=== PATIENT | female | born 1970 | race Caucasian/White ===

== ENCOUNTER 2022-01-05 09:32 | Outpatient (REF) | payer MEDICAID, SELFPAY ==
--- NOTE | ~2022-01-05 | XR_ITS ---
EXAMINATION: XR CERVICAL SPINE CLINICAL INFORMATION: Neck pain. COMPARISON: None TECHNIQUE: 5 views of the cervical spine were obtained. FINDINGS: Bone alignment is normal. No fracture or dislocation is seen. There are postsurgical changes at C5-C6 with loss of height of the C5 vertebral body and bony ankylosis. There is degenerative spondylosis and degenerative disc disease from C3-C4 to C6-C7. There is right-sided neural foraminal narrowing at C3-C4 and C4-C5 and left-sided neural foraminal narrowing from C2-C3 to C6-C7 from bony osteophyte. Prevertebral soft tissues are normal. There are multiple coils in the right neck. XR/XR cervical spine 4V IMPRESSION: Postsurgical changes with bony fusion at C5-C6. Multilevel degenerative changes.
== END 2022-01-05 09:33 | disposition home or self-care (01) ==
LOC: HO.XRAY 09:32
PROVIDERS: PCP Internal Medicine; Visit Provider Internal Medicine
DX: M54.2 Cervicalgia (principal)
CPT/HCPCS: 72050

== ENCOUNTER 2022-01-07 09:48 | Outpatient (REF) | payer MEDICAID, SELFPAY ==
--- NOTE | ~2022-01-07 | MM_ITS ---
EXAMINATION: MM SCREENING DIGITAL BREAST TOMOSYNTHESIS, BILATERAL CLINICAL INFORMATION: Screening. Asymptomatic. Age 51. No prior breast imaging. No known family history breast cancer. The lifetime risk of breast cancer based on the Tyrer-Cuzick Model is 8%. COMPARISON: None (current study represents initial baseline exam). TECHNIQUE: Digital breast tomosynthesis is performed in both the craniocaudal and mediolateral oblique views along with computer-aided detection (CAD). Synthesized 2D images are generated from the tomosynthesis. Additional right MLO view is provided. FINDINGS: There are scattered areas of fibroglandular density (ACR BI-RADS breast composition Category b). There are scattered bilateral fibroglandular asymmetries. There is no significant mass or architectural abnormality or architectural abnormality. No abnormal calcifications. The axilla and skin contours are unremarkable. No skin thickening or retraction. MM/MM tomosynthesis screening BI IMPRESSION: No mammographic evidence of malignancy. ASSESSMENT: BI-RADS 2: Benign RECOMMENDATION: Routine annual mammography screening. This patient's information was entered into a reminder system with a target due date for their next mammogram.
== END 2022-01-07 09:49 | disposition home or self-care (01) ==
LOC: HO.MAMMO 09:48
PROVIDERS: Visit Provider Internal Medicine
DX: Z12.31 Encounter for screening mammogram for malignant neoplasm of breast (principal)
CPT/HCPCS: 77063; 77067

== ENCOUNTER 2023-01-13 09:54 | Outpatient (REF) | payer MEDICAID, SELFPAY ==
--- NOTE | ~2023-01-13 | MM_ITS ---
EXAMINATION: MM SCREENING DIGITAL BREAST TOMOSYNTHESIS, BILATERAL CLINICAL INFORMATION: Screening. Asymptomatic. The lifetime risk of breast cancer based on the Tyrer-Cuzick Model is 8%. COMPARISON: Mammography: 01/07/2022 (baseline) TECHNIQUE: Digital breast tomosynthesis is performed in both the craniocaudal and mediolateral oblique views along with computer-aided detection (CAD). Synthesized 2D images are generated from the tomosynthesis. FINDINGS: There are scattered areas of fibroglandular density (ACR BI-RADS breast composition Category b). There are no significant masses, abnormal calcifications, or other abnormalities. Parenchymal pattern is similar to prior baseline exam. Scattered minor asymmetries are stable. No developing density or architectural abnormality. The axilla are unremarkable. MM/MM tomosynthesis screening BI IMPRESSION: No mammographic evidence of malignancy. ASSESSMENT: BI-RADS 1: Negative RECOMMENDATION: Routine annual mammography screening. This patient's information was entered into a reminder system with a target due date for their next mammogram.
== END 2023-01-13 09:55 | disposition home or self-care (01) ==
LOC: HO.MAMMO 09:54
PROVIDERS: PCP Internal Medicine; Visit Provider Internal Medicine
DX: Z12.31 Encounter for screening mammogram for malignant neoplasm of breast (principal)
CPT/HCPCS: 77063; 77067

== ENCOUNTER 2023-06-13 09:59 | Outpatient (REF) | payer MEDICAID, SELFPAY ==
[2023-06-13 14:37] LABS: MANUAL DIFF FLAG NO
[2023-06-13 14:42] LABS: Basophils Percent Auto 0.7 % (0-2); Eosinophils Absolute Auto 0.2 X10*3/uL (0.0-0.4); Eosinophils Percent Auto 2.8 % (0-4); Hematocrit 43.9 % (37.0-47.0); Hemoglobin 14.2 g/dl (12.0-16.0); Imm Gran Abs Auto 0.01 X10*3/uL (0.00-0.03); Imm Gran Pct Auto 0.2 % (0.0-0.4); Lymphocytes Absolute Auto 1.2 X10*3/uL (1.2-4.9); Mean Corpuscular HGB Conc 32.3 g/dl (31.0-35.0); Mean Corpuscular Hemoglobin 28.7 pg (27.0-33.0); Mean Corpuscular Volume 88.9 fL (80.0-98.0); Mean Platelet Volume 12.6 fL (9.4-12.3); Monocytes Absolute Auto 0.4 X10*3/uL (0.1-1.2); Monocytes Percent Auto 6.5 % (2-11); Neutrophils Absolute Auto 3.6 x10*3/uL (2.0-8.3); Neutrophils Percent Auto 66.8 % (45-73); Platelet Count 182 X10*3/uL (160-400); Red Blood Count 4.94 X10*6/uL (4.20-5.50); Red Cell Distribution Width 13.2 % (11.0-16.0); White Blood Count 5.4 X10*3/uL (4.8-10.8)
[2023-06-13 15:20] LABS: Alanine Aminotransferase 18 U/L (0-31); Albumin Level 4.4 g/dL (3.5-5.0); Alkaline Phosphatase 67 U/L (39-117); Anion Gap 14 (12-20); Aspartate Amino Transferase 18 U/L (5-31); Bilirubin Total 0.5 mg/dL (0.0-1.0); Blood Urea Nitrogen 14 mg/dL (9-16); Carbon Dioxide 27 mmol/L (22-29); Chloride 107 mmol/L (96-108); Cholesterol 197 mg/dL (<200); Estimated Glomerular Filt Rate > 60; Glucose Fasting 75 mg/dL (60-99); HDL Cholesterol 43 mg/dL (>40); LDL Cholesterol Calculated 134 mg/dL (<100); Potassium 3.8 mmol/L (3.3-5.1); Sodium 144 mmol/L (135-145); Total Protein 7.2 g/dL (6.5-8.0); Triglycerides 101 mg/dL (<150)
[2023-06-13 15:34] LABS: TSH reflex Free T4 2.63 uIU/mL (0.32-4.0)
[2023-06-14 15:59] LABS: HCV Log PCR <1.18 NOT DETECTED Log IU/mL (NOT DETECTED); HepC Viral Load <15 NOT DETECTED IU/mL (NOT DETECTED)
== END 2023-06-13 10:00 | disposition home or self-care (01) ==
LOC: HO.CHCLDS 09:59
PROVIDERS: Visit Provider Internal Medicine
DX: I10 Essential (primary) hypertension (principal)
CPT/HCPCS: 36415; 80053; 80061; 84443; 85025; 87522

== ENCOUNTER 2024-03-01 10:59 | Outpatient (REF) | payer MEDICAID, SELFPAY | END 2024-03-01 11:00 | disposition home or self-care (01) | LOC: HO.MAMMO 10:59 | PROVIDERS: PCP Internal Medicine; Visit Provider Internal Medicine | DX: Z12.31 Encounter for screening mammogram for malignant neoplasm of breast (principal) | CPT/HCPCS: 77063; 77067 ==

== ENCOUNTER → 2024-03-01 11:15 | Outpatient (BNV) | payer MEDICAID, SELFPAY | PROVIDERS: PCP Internal Medicine; Visit Provider Radiology Diagnostic Radiology | DX: Z12.31 Encounter for screening mammogram for malignant neoplasm of breast (principal) | CPT/HCPCS: 77063; 77067 ==

== ENCOUNTER 2024-04-09 10:40 | Outpatient (REF) | payer MEDICAID, SELFPAY ==
[2024-04-09 12:26] LABS: Alanine Aminotransferase 23 U/L (0-31); Albumin Level 4.3 g/dL (3.5-5.0); Alkaline Phosphatase 84 U/L (39-117); Anion Gap 13 (12-20); Aspartate Amino Transferase 22 U/L (5-31); Bilirubin Total 0.2 mg/dL (0.0-1.0); Blood Urea Nitrogen 18 mg/dL (9-16); Calcium 9.8 mg/dL (8.4-10.2); Carbon Dioxide 30 mmol/L (22-29); Chloride 105 mmol/L (96-108); Cholesterol 212 mg/dL (<200); Estimated Glomerular Filt Rate > 60; Glucose Random 104 mg/dL (60-115); HDL Cholesterol 45 mg/dL (>40); LDL Cholesterol Calculated 149 mg/dL (<100); Potassium 4.5 mmol/L (3.3-5.1); Sodium 143 mmol/L (135-145); Total Protein 7.7 g/dL (6.5-8.0); Triglycerides 90 mg/dL (<150)
== END 2024-04-09 10:41 | disposition home or self-care (01) ==
LOC: HO.CHCLDS 10:40
PROVIDERS: Visit Provider Internal Medicine
DX: I10 Essential (primary) hypertension (principal)
CPT/HCPCS: 36415; 80053; 80061

== ENCOUNTER 2025-04-15 10:48 | Outpatient (REF) | payer MEDICAID, SELFPAY ==
--- OUTSIDE RECORDS SUMMARY | 2025-04-15 12:00 | XMS_ITS | Encounter Summary ---
Author Organization [employer] Address [address] [place] [address] Care Team Providers Care Employee Development Specialist Name Role Phone Se Eden MD Primary Care Prov ider Encounter Details Date Type Department Care Team (Late st Contact Info) Description 10/12/2022 Telephone [facility] [address] [place], [place] [phone] Se Eden MD [address] [place] [address] Social History Tobacco Use Types Packs/Day Years Used Date Smoking Tobacco: Never Assessed Comments Unknown Sex and Gender Information Value Date Recorded Sex Assigned at Female 08/15/2022 10:14 AM EDT Legal Sex Female 10:14 AM EDT Gender Identity Female 08/15/2022 10:14 AM EDT Sexual Orientation Straight 08/15/2022 10 :14 AM EDT documented as of this encounter Plan of Treatment Upcoming Encounters Date Type Department Care Team (Late st Contact Info) Description 05/26/2025 11:00 AM EDT Procedure Visit [facility] [address] [place], [place] [phone] Marielos Holcomb CNM [address] [place] [address] documented as of this encounter Visit Diagnoses Not on filedocumented in this encounter Care Teams Employee Development Specialist Relationship Specialty Start Date End Date Se Eden MD [address] [place] [phone] PCP - General Internal Medicine 03/06/20 documented as of this encounter
--- OUTSIDE RECORDS SUMMARY | 2025-04-15 12:00 | XMS_ITS | Clinical Summary ---
Author Organization [facility] ity Address [id number] [place] [id number] Care Team Providers Care Capability Lead Name Role Phone Unavailable Primary Care Provider Unavailabl e Social History Tobacco Use Types Packs/Day Years Used Date Smoking Tobacco: Never Assessed Comments Unknown Sex and Gender Information Value Date Recorded Sex Assigned at Not on file Legal Sex Female 2:28 AM EST Gender Identity Not on file Sexual Orientation Not on file Plan of Treatment Health Maintenance Due Date Last Done Comments Breast Cancer Screening 1969 DTaP,Tdap,and Td Vaccines (1 - Tdap) 1988 Hepatitis B Vaccines (1 of 3 - 19+ 3-dose series) 1988 Cervical Cancer Screening: P ap Smear 1990 Pneumococcal Vaccine: 50+ Ye ars (1 of 1 - PCV) 2019 Zoster Vaccines (1 of 2) 2019 Colorectal Cancer Screening: Colonoscopy 09/18/2022 Depression Screening 09/18/2022 HIV Screening 09/18/2022 Hepatitis C Screening 09/18/2022 Social Influencers of Health Screening 09/18/2022 COVID-19 Vaccine ( - 2023-2 5 season) 2024 Influenza Vaccine (Season Ended) 2025 HIB Vaccines Aged Out No longer eligi ble based on patient's age to complete this topic HPV Vaccines Aged Out No longer eligi ble based on patient's age to complete this topic Hepatitis A Vaccines Aged Out No long er eligible based on patient's age to complete this topic IPV Vaccines Aged Out No longer eligi ble based on patient's age to complete this topic MMR Vaccines Aged Out No longer eligi ble based on patient's age to complete this topic Meningococcal ACWY Vaccine Aged Out N o longer eligible based on patient's age to complete this topic Meningococcal B Vaccine Aged Out No l onger eligible based on patient's age to complete this topic Pneumococcal Vaccine: Pediat rics (0 to 5 Years) and At-Risk Patients (6 to 64 Years) Aged Out No longer eligible b ased on patient's age to complete this topic RSV Immunization Patients Un jaylen 20 months Aged Out No longer eligible b ased on patient's age to complete this topic Varicella Vaccines Aged Out No longer eligible based on patient's age to complete this topic
== END 2025-04-15 10:49 | disposition home or self-care (01) ==
LOC: HO.MAMMO 10:48
PROVIDERS: PCP Internal Medicine; Visit Provider Internal Medicine
DX: Z12.31 Encounter for screening mammogram for malignant neoplasm of breast (principal)
CPT/HCPCS: 77063; 77067

== ENCOUNTER → 2025-04-15 11:15 | Outpatient (BNV) | payer MEDICAID, SELFPAY | PROVIDERS: PCP Internal Medicine; Visit Provider Internal Medicine | DX: Z12.31 Encounter for screening mammogram for malignant neoplasm of breast (principal) | CPT/HCPCS: 77063; 77067 ==

== ENCOUNTER 2025-08-12 09:11 | Outpatient (REF) | payer MEDICAID, SELFPAY ==
--- OUTSIDE RECORDS SUMMARY | 2025-08-12 10:20 | XMS_ITS | Encounter Summary ---
Author Organization [employer] Address [address] [place] [address] Care Team Providers Care Steel Loader Name Role Phone Se Eden MD Primary Care Prov ider Reason for Visit * Reason Onset Date Comments Referral 03/13/2024 Encounter Details Date Type Department Care Team ([facility] st Contact Info) Description 03/13/2024 Telephone [facility] [address] [place] [phone] Se Eden MD [address] [place] [address] Referral Social History Tobacco Use Types Packs/Day Years Used Date Smoking Tobacco: Former Smokeless Tobacco: Never Comments:Stopped smoking on 2017 Alcohol Use Standard Drinks/Week Comments Not Currently 0 (1 standard drink = 0.6 oz pur e alcohol) Depression Answer Date Recorded Patient Health Questionnaire-9 Score 15 12/01/2023 Patient Health Questionnaire-9 Score 15 12/01/2023 Last PHQ-9: Questionnaire Data Not on file 0 12/01/2023 Housing Stability Answer Date Recorded What is your housing situation today? I have puneet dewitt 07/31/[address] you li ve. Do you have problems with any of the following? None of the above 07/31/2023 Food Insecurity Answer Date Recorded Within the past 12 months, y ou worried that your food would run out before you got money to buy more: Never True 07/31/2023 Within the past 12 months,th e food you bought just didn't last and you didn't have enough money to get more: Never True Transportation Answer Date Recorded In the past 12 months, has l ack of transportation kept you from medical appts, meetings, work or from getting things needed for daily living? No 07/31/2023 Utilities Answer Date Recorded In the past 12 months, has t he electric, gas, oil or water company threatened to shut off services in your home? No 07/31/2023 Depression Answer Date Recorded Patient Health Questionnaire-2 Score 6 12/01/2023 Comments No Sex and Gender Information Value Date Recorded Sex Assigned at Female 08/15/2022 10:14 AM EDT Legal Sex Female 10:14 AM EDT Gender Identity Female 08/15/2022 10:14 AM EDT Sexual Orientation Straight 08/15/2022 10 :14 AM EDT documented as of this encounter Miscellaneous Notes * Telephone Encounter - Gaviota Fernandes RN - 03/14/2024 9:30 AM EDT See message below. RN will forward to PCP if agrees to place referral. TC from pt requesting new referral : Address: [address] [place] [address] Facility Name: [facility] Type of Specialist: Change Coordinator * Telephone Encounter - Jaspal Mack - 03/13/2024 11:00 AM EDT TC from pt requesting new referral : Address: [address] [place] [address] Facility Name: [facility] Type of Specialist: Change Coordinator documented in this encounter Plan of Treatment Upcoming Encounters Date Type Department Care Team ([facility] Contact Info) Description 08/14/2025 10:00 AM EDT Procedure Visit [facility] [address] [place] [address] Marielos Holcomb CNM [address] [place] [address] documented as of this encounter Visit Diagnoses Not on filedocumented in this encounter Additional Health Concerns Assessment Noted Time PHQ-9 Depression Total Score: 15 024 11:07 AM EST documented as of this encounter Care Teams Steel Loader Relationship Specialty Start Date End Date Se Eden MD [address] [place] [id number] PCP - General Internal Medicine 03/06/20 documented as of this encounter
--- OUTSIDE RECORDS SUMMARY | 2025-08-12 10:20 | XMS_ITS | Clinical Summary ---
Author Organization [facility] ity Address [id number] [place] [phone] Care Team Providers Care Flanging Operator Name Role Phone Unavailable Primary Care Provider [...] 2019 Zoster Vaccines (1 of 2) 2019 Depression Screening 10/16/2024 COVID-19 Vaccine ( - 2023-2 5 season) 2025 Influenza Vaccine (#1) 2025 RSV Immunization Adult Patie nts (1 - 1-dose 75+ series) 2044 HIB Vaccines Aged Out No longer eligi [...]
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
--- OUTSIDE RECORDS SUMMARY | 2025-08-12 10:20 | XMS_ITS | Encounter Summary ---
Author Organization [employer] Address [address] [facility] [address] [place] [address] Care Team Providers Care Scrap Materials Buyer Name Role Phone Se Eden MD Primary Care Prov ider Encounter Details Date Type Department Care Team (Late st Contact Info) Description 10/12/2022 Telephone [facility] [address] [place], [place] [phone] Se Eden MD [address] [place] [address] Social History Tobacco Use Types Packs/Day Years [...] Description 08/14/2025 10:00 AM EDT Procedure Visit [facility] [address] [place], [place] [phone] Marielos Holcomb CNM [address] [place] [address] documented as of this encounter Visit Diagnoses Not on filedocumented in this encounter Care Teams Scrap Materials Buyer Relationship Specialty Start Date End Date Se Eden MD [address] [place] [address] PCP - General Internal Medicine 03/06/20 documented as of this encounter
[2025-08-12 14:30] LABS: MANUAL DIFF FLAG NO
[2025-08-12 14:34] LABS: Hematocrit 43.6 % (37.0-47.0); Hemoglobin 13.8 g/dl (12.0-16.0); Imm Gran Abs Auto 0.02 X10*3/uL (0.00-0.03); Imm Gran Pct Auto 0.3 % (0.0-0.4); Lymphocytes Absolute Auto 1.1 X10*3/uL (1.2-4.9); Mean Corpuscular HGB Conc 31.7 g/dl (31.0-35.0); Mean Corpuscular Hemoglobin 28.6 pg (27.0-33.0); Mean Corpuscular Volume 90.3 fL (80.0-98.0); NRBC Abs Auto 0.000 X10*3/uL (0.0-0.012); NRBC Pct Auto 0.0 /100WBC (0.0-0.2); Platelet Count 180 X10*3/uL (160-400); Red Blood Count 4.83 X10*6/uL (4.20-5.50); White Blood Count 5.9 X10*3/uL (4.8-10.8)
[2025-08-12 14:37] LABS: Alanine Aminotransferase 28 U/L (0-31); Albumin Level 4.6 g/dL (3.5-5.0); Alkaline Phosphatase 79 U/L (39-117); Anion Gap 11 (12-20); Aspartate Amino Transferase 30 U/L (5-31); Blood Urea Nitrogen 12 mg/dL (9-16); Calcium 9.4 mg/dL (8.4-10.2); Carbon Dioxide 30 mmol/L (22-29); Chloride 106 mmol/L (96-108); Cholesterol 215 mg/dL (<200); Estimated Glomerular Filt Rate > 60; HDL Cholesterol 46 mg/dL (>40); Potassium 4.3 mmol/L (3.3-5.1); Sodium 143 mmol/L (135-145); Total Protein 7.5 g/dL (6.5-8.0); Triglycerides 102 mg/dL (<150)
== END 2025-08-12 09:12 | disposition home or self-care (01) ==
LOC: HO.CHCLDS 09:11
PROVIDERS: Visit Provider Internal Medicine
DX: I10 Essential (primary) hypertension (principal)
CPT/HCPCS: 36415; 80053; 80061; 84443; 85025

== ENCOUNTER 2025-08-14 19:10 | Outpatient (REF) | payer MEDICAID, SELFPAY ==
--- OUTSIDE RECORDS SUMMARY | 2025-08-14 10:00 | XMS_ITS | Encounter Summary ---
Author Organization [employer] Address [address] [facility] 7[address] [place] [address] Care Team Providers Care Online Activist Name Role Phone Se Eden MD Primary Care Prov ider Reason for Visit * Reason Comments pap Encounter Details Date Type Department Care Team (Latest Contact Info) Description 08/14/2025 10:00 AM EDT Procedure Visit [facility] MEDICINE [address] [place] [address] Marielos Holcomb CNM [address] [place] [address] Cervical cancer screening (Primary Dx) Social History Tobacco Use Types Packs/Day Years Used Date Smoking Tobacco: Former Smokeless Tobacco: Never Tobacco Cessation:Counseling Given: Not Answered Comments:Stopped smoking on 2017 Alcohol Use Standard Drinks/Week Comments Not Currently 0 (1 standard drink = 0.6 oz pur e alcohol) Depression Answer Date Recorded Patient Health Questionnaire-9 Score 14 08/14/2025 Patient Health Questionnaire-9 Score 14 08/14/2025 Last PHQ-9: Questionnaire Data Not on file 1 Housing Stability Answer Date Recorded What is your housing situation today? I have puneet dewitt 08/14/[address] you li ve. Do you have problems with any of the following? None of the above 08/14/2025 Food Insecurity Answer Date Recorded Within the past 12 months, y ou worried that your food would run out before you got money to buy more: Sometimes True 2024 Within the past 12 months,th e food you bought just didn't last and you didn't have enough money to get more: Sometimes True 08/14/2025 Transportation Answer Date Recorded In the past 12 months, has l ack of transportation kept you from medical appts, meetings, work or from getting things needed for daily living? No 08/14/2025 Utilities Answer Date Recorded In the past 12 months, has t he electric, gas, oil or water company threatened to shut off services in your home? No 08/14/2025 Depression Answer Date Recorded Patient Health Questionnaire-2 Score 2 08/14/2025 Internet Access Answer Date Recorded Internet Access Q1 Yes 08/14/2025 Internet Access Q2 Not on file 08/14/2025 Comments No Sex and Gender Information Value Date Recorded Sex Assigned at Female 08/15/2022 10:14 AM EDT Legal Sex Female 10:14 AM EDT Gender Identity Female 08/15/2022 10:14 AM EDT Sexual Orientation Straight 08/15/2022 10 :14 AM EDT documented as of this encounter Last Filed Vital Signs Vital Sign Reading Time Taken Comments Blood Pressure 120/80 08/14/2025 10:27 AM EDT Pulse 65 08/14/2025 10:27 AM EDT Temperature 36.2 C (97.1 F) 08/14/2025 10:27 AM EDT Respiratory Rate - - Oxygen Saturation 100% 08/14/2025 10:27 AM EDT Inhaled Oxygen Concentration - - Weight 78.6 kg (173 lb 3.2 oz) 08/14/2025 10:27 AM EDT Height - - Body Mass Index 30.68 06/25/2024 11:07 AM EDT documented in this encounter Functional Status * Over the past 2 weeks, how often have you been bothered by any of the following problems? Question Answer Date of Assessment Author Patient Health Questionnaire -2 Score 2 08/14/2025 10:29 AM EDT Lainey Gautam MA * Little interest or pleasure in doing things Answer Date of Assessment Author Several days 08/14/2025 10:29 AM EDT Lainey Gautam MA * Feeling down, depressed, or hopeless Answer Date of Assessment Author Several days 08/14/2025 10:29 AM EDT Lainey Gautam MA * Trouble falling or staying asleep, or sleeping too much Answer Date of Assessment Author Nearly every day 08/14/2025 10:29 AM Lainey Fraser MA * Feeling tired or having little energy Answer Date of Assessment Author More than half the days 08/14/2025 10:29 AM Lainey Fraser MA * Poor appetite or overeating Answer Date of Assessment Author More than half the days 08/14/2025 10:29 AM Lainey Fraser MA * Feeling bad about yourself - or that you are a failure or have let yourself or your family down Answer Date of Assessment Author More than half the days 08/14/2025 10:29 AM Lainey Fraser MA * Trouble concentrating on things, such as reading the newspaper or watching television Answer Date of Assessment Author Several days 08/14/2025 10:29 AM Lainey Fraser MA * Moving or speaking so slowly that other people could have noticed? Or the opposite - being so fidgety or restless that you have been moving around a lot more than usual. Answer Date of Assessment Author More than half the days 08/14/2025 10:29 AM Lainey Fraser MA * Thoughts that you would be better off or hurting yourself in some way Answer Date of Assessment Author Not at all 08/14/2025 10:29 AM Lainey Fraser MA * Patient Health Questionnaire-9 Score Answer Date of Assessment Author 14 08/14/2025 10:29 AM Lainey Fraser MA * How difficult have these problems made it for you to do your work, take care of things at home, or get along with other people? Answer Date of Assessment Author Somewhat difficult 08/14/2025 10:29 AM Lainey Basilio MA * Over the last 2 weeks, how often have you been bothered by any of the following problems? Question Answer Date of Assessment Author Feeling nervous, anxious, or on edge 1 08/14/2025 10:29 AM Lainey Fraser MA Not being able to stop or co ntrol worrying 0 08/14/2025 10:29 AM Lainey Fraser MA Worrying too much about diff erent things 3 08/14/2025 10:29 AM EDT Lainey Gautam MA Trouble relaxing 2 08/14/2025 10:29 AM EDT Lainey Gautam MA Being so restless that it is hard to sit still 2 08/14/2025 10:29 AM EDT Lainey Gautam MA Becoming easily annoyed or irritable 2 08/14/2025 10:29 AM EDT Lainey Gautam MA Feeling afraid as if somethi ng awful might happen 0 08/14/2025 10:29 AM EDT Lainey Gautam MA SHELLEY-7 Total Score 10 08/14/2025 10:29 AM EDT Lainey Gautam MA documented as of this encounter Progress Notes * Marielos Holcomb CNM - 08/14/2025 10:00 AM EDT Subjective Patient ID: Clementine Patel is a 54 y.o. female who presents for pap NIL/HPV neg pap 05/2022. ASCUS HPV positive pap 2015, followed by negative colposcopy 2015. Due for cotesting today. Mammogram BIRADS 2 cat b 04/2025. Declines breast exam. Pelvic ultrasound from 2009 showed large fibroid, s/p supracervical hyst. No current partner. Lives alone, children live nearby. Feels safe at home. 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 No personal fracture, no parental hip fracture. Denies vasomotor symptoms. Review of Systems Genitourinary: Negative for dyspareunia, dysuria, frequency, genital sores, hematuria, menstrual problem, pelvic pain, urgency, vaginal bleeding, vaginal discharge and vaginal pain. No abnormal bleeding, no breast pain, no breast mass, no nipple discharge Objective BP 120/80 (BP Location: Left arm, Patient Position: Sitting, BP Cuff Size: Adult) Pulse 65 Temp97.1 ??F (36.2 ??C) (Oral) Wt 173 lb 3.2 oz (78.6 kg) SpO2 100% BMI 30.68 kg/m?? 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 Constitutional: Appearance: Normal appearance. Genitourinary: General: Normal vulva. Labia: Right: No rash, tenderness, lesion or injury. Left: No rash, tenderness, lesion or injury. Vagina: Normal. No signs of injury and foreign body. No vaginal discharge, erythema, tenderness, bleeding or lesions. Cervix: No cervical motion tenderness, discharge, friability, lesion, erythema, cervical bleeding or eversion. Uterus: Absent. Adnexa: Right adnexa normal and left adnexa normal. Right: No mass, tenderness or fullness. Left: No mass, tenderness or fullness. Comments: Ovaries non palpable bilaterally Neurological: Mental Status: She is alert. Psychiatric: Mood and Affect: Mood normal. Behavior: Behavior normal. Assessment/Plan Diagnoses and all orders for this visit: Cervical cancer screening - Pap Smear Cotest 3 years if normal/HPV negative. Will contact with results and plan. Routine mammography. Report vasomotor symptoms, vaginal, breast or urinary symptoms. BMD at 65, sooner if new risk factors. documented in this encounter Plan of Treatment Scheduled Orders Name Type Priority Associated Diagnoses Orde r Schedule Pap Smear Pathology and Cytology Routine Cervical cancer screening Ordered: 08/14/2025 documented as of this encounter Visit Diagnoses Diagnosis Cervical cancer screening- Primary Screening for malignant neoplasm of the cervix documented in this encounter Additional Health Concerns Assessment Noted Time PHQ-9 Depression Total Score: 14 025 10:29 AM EDT documented as of this encounter Care Teams Online Activist Relationship Specialty Start Date End Date Se Eden MD [address] [place] [id number] PCP - General Internal Medicine 03/06/20 documented as of this encounter
--- OUTSIDE RECORDS SUMMARY | 2025-08-14 19:12 | XMS_ITS | Encounter Summary ---
Author Organization [employer] Address [address] [facility] [address] [place] [address] Care Team Providers Care Sales Supervisor Name Role Phone Se Eden MD Primary Care Prov ider Encounter Details Date Type Department Care Team (Latest Contact Info) Description 08/14/2025 Travel Social History Tobacco Use Types Packs/Day Years [...] is your housing situation today? I have puneetchristian dewitt 08/14/[address] you [...] AM EDT documented as of this encounter Functional Status * Over the [...] Author Nearly every day 08/14/2025 10:29 AM EDT Lainey Gautam MA * Feeling tired or having little energy Answer Date of Assessment Author More than half the days 08/14/2025 10:29 AM EDT Lainey Gautam MA * Poor appetite or overeating Answer Date of Assessment Author More than half the days 08/14/2025 10:29 AM EDT Lainey Gautam MA * Feeling bad about yourself - or that you are a failure or have let yourself or your family down Answer Date of Assessment Author More than half the days 08/14/2025 10:29 AM EDT Lainey Gautam MA * Trouble concentrating on things, such as reading the newspaper or watching television Answer Date of Assessment Author Several days 08/14/2025 10:29 AM EDT Lainey Gautam MA * Moving or speaking so slowly that other people could have noticed? Or the opposite - being so fidgety or restless that you have been moving around a lot more than usual. Answer Date of Assessment Author More than half the days 08/14/2025 10:29 AM EDT Lainey Gautam MA * Thoughts that you would be better off or hurting yourself in some way Answer Date of Assessment Author Not at all 08/14/2025 10:29 AM EDT Lainey Gautam MA * Patient Health Questionnaire-9 Score Answer Date of Assessment Author 14 08/14/2025 10:29 AM EDT Lainey Gautam MA * How difficult have these problems made it for you to do your work, take care of things at home, or get along with other people? Answer Date of Assessment Author Somewhat difficult 08/14/2025 10:29 AM EDT Lainey Ching MA * Over the last 2 weeks, how often have you been bothered by any of the following problems? Question Answer Date of Assessment Author Feeling nervous, anxious, or on edge 1 08/14/2025 10:29 AM EDT Lainey Gautam MA Not being able to stop or co ntrol worrying 0 08/14/2025 10:29 AM EDT Lainey Gautam MA Worrying too much about diff erent [...] Gautam MA documented as of this encounter Plan of Treatment Not on file documented as of this encounter Visit Diagnoses Not on filedocumented in this encounter Additional Health Concerns Assessment Noted Time PHQ-9 Depression Total Score: 14 08/14/ 025 10:29 AM EDT documented as of this encounter Care Teams Sales Supervisor Relationship Specialty Start Date End Date Se Eden MD [address] [place] [id number] PCP - General Internal Medicine 03/06/20 documented as of this encounter
--- OUTSIDE RECORDS SUMMARY | 2025-08-14 19:12 | XMS_ITS | Encounter Summary ---
Author Organization [employer] Address [address] [facility] 7t [place] [address] Care Team Providers Care Steward/Stewardess Smoke Room Name Role Phone Se Eden MD Primary Care Prov ider Reason for Visit * Reason Onset Date Comments chart prep 08/13/2025 Encounter Details Date Type Department Care Team (Late st Contact Info) Description 08/13/2025 Telephone [facility] MEDICINE [address] [place], [place] [phone] Marielos Holcomb CNM [address] [place], [place] [phone] chart prep Social History Tobacco Use Types Packs/Day Years Used Date Smoking Tobacco: Former Smokeless Tobacco: Never Comments:Stopped smoking on 2016 Alcohol Use Standard [...] encounter Miscellaneous Notes * Telephone Encounter - Destiny Cruz MA - 08/13/2025 1:40 PM EDT ..Chart Prep Labs: not applicable Images: not applicable Vaccines due: Covid Due, Hep B Due, PCV20 Due, and Flu Due Referrals: Not Applicable Screenings: Not Applicable Overdue care gaps: Sbirt, SDOH, PHQ9, GAD7, and Disability documented in this encounter Plan of Treatment Not on file documented as of this encounter Visit Diagnoses Not on filedocumented in this encounter Additional Health Concerns Assessment Noted Time PHQ-9 Depression Total Score: 14 024 9:38 AM EDT documented as of this encounter Care Teams Steward/Stewardess Smoke Room Relationship Specialty Start Date End Date Se Eden MD [address] [place], [place] [address] [address] PCP - General Internal Medicine 03/06/20 documented as of this encounter
--- OUTSIDE RECORDS SUMMARY | 2025-08-14 19:12 | XMS_ITS | Encounter Summary ---
Author Organization [employer] Address [address] [place] [address] 7t [place] [address] Care Team Providers Care Psych Social Worker Name Role Phone Se Eden MD Primary Care Prov ider Encounter Details Date Type Department Care Team ([facility] st Contact Info) Description 10/12/2022 Telephone [facility] [address] [place] [address] Se Eden MD [address] [place] [address] Social History Tobacco Use Types Packs/Day Years [...] on filedocumented in this encounter Care Teams Psych Social Worker Relationship Specialty Start Date End Date Se Eden MD [address] [place] [address] PCP - General Internal Medicine 03/06/20 documented as of this encounter
--- OUTSIDE RECORDS SUMMARY | 2025-08-14 19:12 | XMS_ITS | Encounter Summary ---
Author Organization [employer] Address [address] [facility] [address] [place] [address] Care Team Providers Care Spring Forger Name Role Phone Se Eden MD Primary Care Prov ider Reason for Visit * Reason Onset Date Comments Referral 03/13/2024 Encounter Details Date Type Department Care Team ([facility] st Contact Info) Description 03/13/2024 Telephone [facility] MEDICINE [address] [place] [address] Se Eden MD [address] [place] [address] Referral Social History Tobacco Use Types Packs/Day [...] from pt requesting new referral : Address: [address] [place] [address] Facility Name: [facility] Type of Specialist: Blending Machine Feeder * Telephone Encounter - Jaspal Mack - 03/13/2024 11:00 AM EDT TC from pt requesting new referral : Address: [address] [place] [address] Facility Name: [facility] Type of Specialist: Blending Machine Feeder documented in this encounter Plan of Treatment Not on file documented as of this encounter Visit Diagnoses Not on filedocumented in this encounter Additional Health Concerns Assessment Noted Time PHQ-9 Depression Total Score: 15 024 11:07 AM EST documented as of this encounter Care Teams Spring Forger Relationship Specialty Start Date End Date Se Eden MD [address] [place] [address] PCP - General Internal Medicine 03/06/20 documented as of this encounter
--- OUTSIDE RECORDS SUMMARY | 2025-08-14 19:12 | XMS_ITS | Clinical Summary ---
Author Organization [facility] ity Address [id number] [place] [id number] Care Team Providers Care Plating Tank Operator Apprentice Name Role Phone Unavailable Primary Care Provider [...]
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
== END 2025-08-14 19:11 | disposition home or self-care (01) ==
LOC: HO.HHCLNP 19:10
PROVIDERS: Visit Provider Advanced Practice Midwife
DX: Z12.4 Encounter for screening for malignant neoplasm of cervix (principal)
CPT/HCPCS: 87626; 88175